=== PATIENT | female | born 1975 | race Caucasian/White ===

== ENCOUNTER 2020-12-27 17:06 | Emergency (ER) | payer OTHER ==
--- NOTE | 2020-12-27 17:10 | ED ---
General Adult HPI - General Stated complaint: near synocpe-sent by PCP - History of Present Illness Initial comments: 45-year-old female with history of paroxysmal tachycardia and currently wearing a Holter monitor presents emergency Department with a chief complaint of lightheadedness. Patient reports decreased appetite for the past 2-3 months for no particular reason. Patient states she has been drinking protein shakes and living all 700 [address] per day. She reports weight loss of 30 pounds during this period. Denies chest pain and shortness of breath this time. Denies any syncopal episodes. Patient states she spoke to her primary care physician who advised to come to the emergency department for an evaluation. - Related Data Home Medications Medication Instructions Recorded Confirmed Famotidine [Pepcid] 20 mg PO HS PRN 12/27/20 12/27/20 Metoprolol Tartrate [Lopressor] 25 mg PO BID 12/27/20 12/27/20 Allergies Allergy/AdvReac Type Severity Reaction Status Date / Time lidocaine Allergy Rash/Hives Verified 12/27/20 23:14 Iodinated Contrast Media AdvReac Rapid Verified 12/27/20 23:14 Heart Rate Review of Systems ROS Statement: Those systems with pertinent positive or pertinent negative responses have been documented in the HPI. ROS Other: All systems not noted in ROS Statement are negative. General Exam Limitations: no limitations General appearance: alert, in no apparent distress Head exam: Present: atraumatic, normocephalic, normal inspection Eye exam: Present: normal appearance, PERRL, EOMI Pupils: Present: normal accommodation ENT exam: Present: normal exam, normal oropharynx, mucous membranes moist, TM's normal bilaterally, normal external ear exam Neck exam: Present: normal inspection, full ROM. Absent: tenderness, lymphadenopathy Respiratory exam: Present: normal lung sounds bilaterally. Absent: respiratory distress, wheezes, rales, rhonchi, stridor, chest wall tenderness Cardiovascular Exam: Present: regular rate, normal rhythm, normal heart sounds. Absent: systolic murmur GI/Abdominal exam: Present: soft. Absent: distended, tenderness, guarding, rebound Extremities exam: Present: normal inspection, full ROM, normal capillary refill. Absent: tenderness, pedal edema, joint swelling Back exam: Present: normal inspection, full ROM. Absent: tenderness, CVA tenderness (R), CVA tenderness (L) Neurological exam: Present: alert, oriented X3 Psychiatric exam: Present: normal affect, normal mood Skin exam: Present: warm, dry, intact, normal color Course Vital Signs 12/27/20 12/27/20 17:08 18:54 Temperature 97.6 F 98.8 F Pulse Rate 86 59 L Respiratory 18 18 Rate Blood Pressure 119/83 149/98 O2 Sat by Pulse 97 96 Oximetry EKG Findings - EKG Comments: EKG Findings:: Sinus arrhythmia. Ventricular rate 76, SD 156, QRS 74, QTC 400. Medical Decision Making - Medical Decision Making 45-year-old female presents emergency Department with a chief complaint of lightheadedness. On physical examination, no acute findings. Patient is neurovascularly intact. Patient was given 1 L of IV bolus fluids. CBC unremarkable. CMP reveals mild transaminitis. Covid negative. She was not able to give a urine sample. Negative . I did recommend CT imaging of the abdomen and pelvis with contrast due to decreased appetite and weight loss. Patient agreed but she refused iodine contrast. I did give her the option of giving steroids and Benadryl and Pepcid to help eliminate the side effects of the iodine, she declined. CT without contrast of abdomen and pelvis showed no acute findings. Cholelithiasis noted. Advised patient to follow up with her primary care physician. Strict return parameters were thoroughly discussed with patient is understanding and agreeable. Case discussed with Dr. Mari. - Lab Data Result diagrams: 12/27/20 17:43 12/27/20 17:43 Lab Results 12/27/20 12/27/20 12/27/20 Range/Units 17:15 17:43 17:43 WBC 7.6 (3.8-10.6) k/uL RBC 4.80 (3.80-5.40) m/uL Hgb 15.0 (11.4-16.0) gm/dL Hct 44.0 (34.0-46.0) % MCV 91.8 (80.0-100.0) fL MCH 31.3 (25.0-35.0) pg MCHC 34.2 (31.0-37.0) g/dL RDW 12.4 (11.5-15.5) % Plt Count 304 (150-450) k/uL MPV 7.8 Neutrophils % 72 % Lymphocytes % 22 % Monocytes % 4 % Eosinophils % 0 % Basophils % 1 % Neutrophils # 5.4 (1.3-7.7) k/uL Lymphocytes # 1.7 (1.0-4.8) k/uL Monocytes # 0.3 (0-1.0) k/uL Eosinophils # 0.0 (0-0.7) k/uL Basophils # 0.0 (0-0.2) k/uL Sodium 137 (137-145) mmol/L Potassium 4.5 (3.5-5.1) mmol/L Chloride 101 (98-107) mmol/L Carbon Dioxide 25 (22-30) mmol/L Anion Gap 11 mmol/L BUN 11 (7-17) mg/dL Creatinine 0.94 (0.52-1.04) mg/dL Est GFR (CKD-EPI)AfAm 86 (>60 ml/min/1.73 sqM) Est GFR (CKD-EPI)NonAf 74 (>60 ml/min/1.73 sqM) Glucose 94 (74-99) mg/dL Calcium 10.1 (8.4-10.2) mg/dL Total Bilirubin 0.8 (0.2-1.3) mg/dL AST 72 H (14-36) U/L ALT 146 H (4-34) U/L Alkaline Phosphatase 85 (38-126) U/L Total Protein 7.1 (6.3-8.2) g/dL Albumin 4.5 (3.5-5.0) g/dL HCG, Qual Coronavirus (PCR) Not Detected (Not Detectd) 12/27/20 Range/Units 21:24 WBC (3.8-10.6) k/uL RBC (3.80-5.40) m/uL Hgb (11.4-16.0) gm/dL Hct (34.0-46.0) % MCV (80.0-100.0) fL MCH (25.0-35.0) pg MCHC (31.0-37.0) g/dL RDW (11.5-15.5) % Plt Count (150-450) k/uL MPV Neutrophils % % Lymphocytes % % Monocytes % % Eosinophils % % Basophils % % Neutrophils # (1.3-7.7) k/uL Lymphocytes # (1.0-4.8) k/uL Monocytes # (0-1.0) k/uL Eosinophils # (0-0.7) k/uL Basophils # (0-0.2) k/uL Sodium (137-145) mmol/L Potassium (3.5-5.1) mmol/L Chloride (98-107) mmol/L Carbon Dioxide (22-30) mmol/L Anion Gap mmol/L BUN (7-17) mg/dL Creatinine (0.52-1.04) mg/dL Est GFR (CKD-EPI)AfAm (>60 ml/min/1.73 sqM) Est GFR (CKD-EPI)NonAf (>60 ml/min/1.73 sqM) Glucose (74-99) mg/dL Calcium (8.4-10.2) mg/dL Total Bilirubin (0.2-1.3) mg/dL AST (14-36) U/L ALT (4-34) U/L Alkaline Phosphatase (38-126) U/L Total Protein (6.3-8.2) g/dL Albumin (3.5-5.0) g/dL HCG, Qual Not Detected Coronavirus (PCR) (Not Detectd) Disposition Clinical Impression: Lightheadedness, Decreased appetite Disposition: HOME SELF-CARE Condition: Stable Instructions (If sedation given, give patient instructions): Lightheadedness (ED) Additional Instructions: Please return to the Emergency Department if symptoms worsen or any other concerns. Is patient prescribed a controlled substance at d/c from ED?: No Referrals: Sudhir Velez MD [Primary Care Provider] - 1-2 days Time of Disposition: 23:39
[2020-12-27 17:50] LABS: Basophils % (A) 1 %; Eosinophils % (A) 0 %; Lymphocytes # (A) 1.7 k/uL (1.0-4.8); Lymphocytes % (A) 22 %; MCH 31.3 pg (25.0-35.0); MCHC 34.2 g/dL (31.0-37.0); MCV 91.8 fL (80.0-100.0); Mean Platelet Volume 7.8; Monocytes # (A) 0.3 k/uL (0-1.0); Monocytes % (A) 4 %; Neutrophils # (A) 5.4 k/uL (1.3-7.7); Neutrophils % (A) 72 %; Platelet Count 304 k/uL (150-450); RDW 12.4 % (11.5-15.5); WBC 7.6 k/uL (3.8-10.6)
[2020-12-27 18:00] LABS: Albumin 4.5 g/dL (3.5-5.0); Calcium 10.1 mg/dL (8.4-10.2); Potassium 4.5 mmol/L (3.5-5.1); Total Bilirubin 0.8 mg/dL (0.2-1.3); Total Protein 7.1 g/dL (6.3-8.2)
[2020-12-27] MEDS ORDERED: SODIUM CHLORIDE 0.9% 1,000 ML IV STA (20:38)
--- NOTE | 2020-12-27 23:24 | CT ---
EXAMINATION TYPE: CT abdomen pelvis wo con DATE OF EXAM: 12/27/2020 COMPARISON: None HISTORY: Loss of appetite. 30lb weight loss in [address] DLP: 562.9 mGycm Automated exposure control for dose reduction was used. Images obtained from the diaphragm to the floor the pelvis without contrast. FINDINGS: Lung bases are clear of consolidation. Heart size is normal. There is no pericardial effusion. Liver spleen stomach pancreas appear normal. There is 3 cm calcified gallstone. There is no adrenal mass. Kidneys have normal size. There is some fullness of the left renal pelvis b ut no hydroureter. No calculus identified. There is no retroperitoneal adenopathy. Bladder distends s moothly. There is no inguinal hernia. Uterus is anteverted. Lumbar vertebra have normal alignment. Posterior elements are intact. Disc spac es are normal. Bony pelvis is intact. Hip joints are intact. There is no evidence of pelvic mass. Appendix not defin itely seen. No sign of thickened appendix. There are multiple sigmoid diverticula. IMPRESSION: There is some fullness of the left renal pelvis but no calculus identified. Mild sigmoid diverticulosis without diverticulitis.. Cholelithiasis.
[2020-12-27 23:57] VITALS: BP 138/89; PULSE 79; RESP 17; TEMP 97.9
== END 2020-12-27 23:43 | disposition home or self-care (01) ==
LOC: EC 17:06
DX: R42 Dizziness and giddiness (principal); R63.0 Anorexia; Z68.27 Body mass index [BMI] 27.0-27.9, adult
CPT/HCPCS: 36415; 74176; 80053; 84703; 85025; 87635; 93005; 96360; 99284

== ENCOUNTER → 2021-05-18 | Outpatient (CLI) | payer OTHER ==
[2021-05-18 16:11] LABS: Basophils # (A) 0.04 X 10*3/uL (0.00-0.10); Basophils % (A) 0.7 %; Eosinophils # (A) 0.16 X 10*3/uL (0.04-0.35); Eosinophils % (A) 2.9 %; HCT 43.6 % (37.2-46.3); HGB 13.7 g/dL (12.0-15.0); Lymphocytes # (A) 2.58 X 10*3/uL (0.90-5.00); Lymphocytes % (A) 47.3 %; MCH 30.4 pg (27.0-32.0); MCHC 31.4 g/dL (32.0-37.0); MCV 96.7 fL (80.0-97.0); Mean Platelet Volume 11.6 fL (9.5-12.2); Monocytes # (A) 0.38 X 10*3/uL (0.20-1.00); Neutrophils # (A) 2.28 X 10*3/uL (1.80-7.70); Neutrophils % (A) 41.7 %; Platelet Count 248 X 10*3/uL (140-440); RBC 4.51 X 10*6/uL (4.10-5.20); RDW 12.2 % (11.5-14.5); WBC 5.46 X 10*3/uL (4.50-10.00)
[2021-05-18 21:43] LABS: T4, Free (Free Thyroxine) 1.1 ng/dL (0.80-1.80)
[2021-05-18 21:49] LABS: African American GFR (CKD) 89.5 (60.0-200.0); Albumin 4.5 g/dL (3.80-4.90); Albumin/Globulin Ratio 1.88 (1.60-3.17); Anion Gap 6.5 mmol/L (4.00-12.00); BUN/Creat Ratio 12.22 Ratio (12.00-20.00); Calcium 9.7 mg/dL (8.7-10.3); Carbon Dioxide 27.5 mmol/L (21.6-31.8); Globulin 2.4 g/dL (1.6-3.3); Non-African American GFR(CKD) 77.2 (60.0-200.0); Potassium 4.2 mmol/L (3.5-5.5); Total Bilirubin 0.7 mg/dL (0.2-1.2); Total Protein 6.9 g/dL (6.2-8.2)
[2021-05-18 23:19] LABS: Hepatitis B Core IgM Non-Reactive (Non-Reactive); Hepatitis B Surface Antigen Non-Reactive (Non-Reactive)
[2021-05-19 11:32] LABS: Total Protein,CSF 32 mg/dL (12-60)
[2021-05-19 12:15] LABS: Appearance,CSF Clear; CSF Tube Number 4; CSF Tube Volume 3; Nucleated Cells, CSF 0 u/L (0-5); Red Blood Cell,CSF 1 u/L (0-10)
[2021-05-20 13:05] LABS: Vit B1(Thiamine) 72 ug/L (38-122)
[2021-05-20 14:11] LABS: HTLV-1 and 2 (EIA) Negative (Negative)
[2021-05-23 14:34] LABS: IgG - CSF 1.5 mg/dL (0.0 - 3.4); IgG/Albumin Index (CSF) 0.47 (0.00 - 0.77); Immunoglobulin G 889 mg/dL (700 - 1600)
== END | disposition home or self-care (01) ==
LOC: LABWHC1 08:51
PROVIDERS: ATTEND Psychiatry & Neurology Neurology
DX: R90.82 White matter disease, unspecified (principal)
CPT/HCPCS: 36415; 80053; 82040; 82042; 82306; 82607; 82784; 83036; 83916; 84157; 84207; 84252; 84425; 84439; 84443; 84481; 85025; 86704; 86705; 86790; 87340; 87801; 88108; 89050